=== PATIENT | male | born 2000 | race Two or more races ===

== ENCOUNTER 2023-02-28 21:17 | Emergency (ER) | payer OTHER ==
[~2023-02-28] VITALS: Ht 177.8 cm; Wt 80.7 kg
== END 2023-02-28 22:37 | disposition home or self-care (01) ==
LOC: ER 21:17
DX: J10.1 Influenza due to other identified influenza virus with other respiratory manifestations (principal); Z20.822 Contact with and (suspected) exposure to COVID-19